=== PATIENT | male | born 1955 | race Caucasian/White ===

== ENCOUNTER 2021-06-10 06:02 | Day surgery (SDC) | payer OTHER ==
[~2021-06-10 06:02] MED LIST: ASPIRIN81 MG PO; HYDROCHLOROT12.5 MG PO; LISINOPRIL5 MG PO; METOPROL TAR25 MG PO; MULTI COMPLETE PO; PRAVASTATIN SOD10 MG PO
[2021-06-10 08:11] VITALS: BP 149/90
== END 2021-06-10 08:19 | DRG 951 ==
LOC: ENDO 06:02
PROVIDERS: ATTEND Surgery
PROC: 0DBH8ZX Excision of Cecum, Via Natural or Artificial Opening Endoscopic, Diagnostic (ICD-10-PCS; principal; 2021-06-10)
DX: Z12.11 Encounter for screening for malignant neoplasm of colon (principal); D12.0 Benign neoplasm of cecum; I10 Essential (primary) hypertension; E78.00 Pure hypercholesterolemia, unspecified; Z86.010 Personal history of colon polyps

== ENCOUNTER 2021-09-22 13:52 | Emergency (ER) | payer OTHER ==
[2021-09-22] VITALS (7 sets, daily range): BP systolic 114–136; BP diastolic 58–74
[~2021-09-22] VITALS: Ht 182.9 cm; Wt 100.0 kg
[2021-09-22] MEDS ORDERED: IBUPROFEN600 MG PO (15:46)
== END 2021-09-22 16:35 | DRG 563 ==
LOC: ED 13:52
PROC: 2W3TX1Z Immobilization of Left Foot using Splint (ICD-10-PCS; principal; 2021-09-22)
DX: S92.352A Displaced fracture of fifth metatarsal bone, left foot, initial encounter for closed fracture (principal); S30.0XXA Contusion of lower back and pelvis, initial encounter; S60.222A Contusion of left hand, initial encounter; I10 Essential (primary) hypertension; W06.XXXA Fall from bed, initial encounter; Y92.143 Cell of prison as the place of occurrence of the external cause